=== PATIENT | male | born 1975 | race Caucasian/White ===

== ENCOUNTER 2017-08-26 10:24 | Day surgery (SDC) | payer BC ==
[~2017-08-26] VITALS: Ht 175.3 cm; Wt 81.6 kg
[~2017-08-26 10:24] MED LIST: AMLO1CAP PO; HYDR-3729 PO; PANT40TA3 PO; SUCR1TAB PO
--- OUTSIDE RECORDS SUMMARY | 2017-08-26 10:27 | XMS REPORT | Continuity of Care Document ---
Author Author [facility] Organization [facility] Address Unknown Phone Unavailable Allergies Active Description Code Type Severity Reaction Onset Reported/Identified Relationship to Patient Clinical Status Yes No Known Drug Allergies [id number] Drug Allergy Unknown N/ A 08/11/2014 Medications Problems Date Dx Coded Attending Type Code Diagnosis Diagnosed By 08/17/2014 MANUEL GATES MD Ot 575.11 CHRONIC CHOLECYSTITIS 08/19/2017 MANUEL GATES MD Ot 575.8 DIS OF GALLBLADDER NEC 08/19/2017 MANUEL GATES MD Ot 789.01 ABDOMINAL PAIN, RIGHT UPPER QUADRANT 08/19/2017 MANUEL GATES MD Ot 575.8 DIS OF GALLBLADDER NEC 08/19/2017 MANUEL GATES MD Ot V72.63 PRE-PROCEDURAL LABORATORY EXAMINATION 08/19/2017 MANUEL GATES MD Ot V72.81 WONT-[id number]-PCTDVJTFX CARDIOVASCULAR 08/19/2017 MANUEL GATES MD Ot V74.8 SCREEN-BACTERIAL DIS NEC Procedures Results Encounters ACCT No. Visit Date/Time Discharge Status Pt. Type Provider Facility Loc./Unit Complaint [id number] 08/19/2017 05:50:00 2016 15:44:00 DIS Outpatient MANUEL GATES MD [facility] PREOP EGD [id number] 08/17/2014 07:00:00 2013 12:15:00 DIS Outpatient MANUEL GATES MD [facility] SDC GALLBLADDER DYSKNESIA [id number] 08/16/2014 08:33:00 2013 23:59:59 CLS Outpatient MANUEL GATES MD [facility] PREOP GALLBLADDER DYSKNESIA [id number] 08/11/2014 14:04:00 2013 23:59:59 CLS Outpatient MANUEL GATES MD [facility] CARD RUQ PAIN [id number] 08/26/2017 11:30:00 ASHLEIGH GATES MD, MANUEL [facility] ENDO EPIGASTRIC PAIN
[2017-08-26] MEDS ORDERED: NS IV 500 ML 500 ML IV PRN (10:30)
[2017-08-26 10:51] VITALS: BP 139/97
--- NOTE | 2017-08-26 11:37 | Conscious Sedation/ASA ---
Conscious Sedation Pre-Proced Time Reviewed: 11:37 ASA Class: 2 Airway Mallampati Classification: ([place] appropriate class) I. II. III, IV Lungs Heart ASA score ASA 1: a normal healthy patient ASA 2: a patient with a mild systemic disease (mid diabetes, controlled hypertension, obesity ASA 3: a patient with a severe systemic disease that limits activity (angina , COPD, prior Myocardial infarction) ASA 4: a patient with an incapacitating disease that is a constant threat to life (CHF, renal failure) ASA 5: a moribund patient not expected to survive 24 hrs. (ruptured aneurysm) ASA 6: a declared brain patient whose organs are being harvested. For emergent operations, add the letter E after the classification Grade 1 Sedation Plan: Discussed options with patient/fam Note The patient is an appropriate candidate to undergo the planned procedure, sedation, and anesthesia. The patient immediately re-assessed prior to indication. MANUEL GATES MD Aug 26, 2017 11:37 am
--- NOTE | 2017-08-26 11:37 | History & Physicial ---
History of Present Illness History of Present Illness Reason for visit/HPI to undergo an upper endoscopy to evaluate epigastric pain Date of Admission Date Seen by Provider: Aug 26, 2017 Time Seen by Provider: 11:34 I consulted on this patient on 08/26/17 11:34 Attending Physician Manuel Gates MD Admitting Physician Mckay Gonzalez MD Consult Allergies and Home Medications Allergies Coded Allergies: No Known Drug Allergies (Unverified , 08/11/14) Home Medications Amlodipine Besylate/Benazepril 1 Each Capsule, 1 EACH PO DAILY, (Reported) Pantoprazole Sodium 40 Mg Tablet.dr, 40 MG PO DAILY, (Reported) Sucralfate 1 Gm Tablet, 1 GM PO ACHS, (Reported) Past [id number]-Pzkkmv-Rojvvw Hx Patient Social History Marrital Status: , Employed/Student: employed Alcohol Use: Regular Use Number of Drinks Today: 0 Alcohol Beverage of Choice: Beer Recreational Drug Use: Yes (1.5 PPD) Smoking Status: Current Everyday Smoker Type Used: Cigarettes Recent Foreign Travel: No Contact w/other who traveled: No Recent Hopitalizations: No Recent Infectious Disease Expo: No Seasonal Allergies Seasonal Allergies: No Surgeries Yes Gallbladder Respiratory No Cardiovascular Yes Hypertension Neurological No Reproductive System Hx Reproductive Disorders: No Genitourinary No Gastrointestinal No Musculoskeletal No Endocrine History of Endocrine Disorders: No HEENT History of HEENT Disorders: No Cancer No Psychosocial History of Psychiatric Problem: No Integumentary History of Skin or Integumenta: No Constitutional: no symptoms reported EENTM: no symptoms reported Respiratory: no symptoms reported Cardiovascular: no symptoms reported Gastrointestinal: see HPI Genitourinary: no symptoms reported Musculoskeletal: no symptoms reported Skin: no symptoms reported Psychiatric/Neurological: No Symptoms Reported Physical Exam Vital Signs Vital Sign - Last 12Hours 08/26/17 10:51 Temp 98.0 Pulse 77 Resp 16 B/P (MAP) 139/97 Pulse Ox 95 O2 Delivery Room Air Capillary Refill : General Appearance: No Apparent Distress HEENT: Normal ENT Inspection Neck: Normal Inspection Respiratory: Lungs Clear Cardiovascular: Regular Rate, Rhythm Gastrointestinal: Soft Rectal: Deferred Back: Normal Inspection Extremity: Normal Inspection Neurologic/Psychiatric: Oriented x3 Assessment/Plan Assessment and Plan gentleman with epigastric pain.previous cholecystectomy. For an upper endoscopy. Problems: MANUEL GATES MD Aug 26, 2017 11:37 am
[2017-08-26] MEDS ORDERED: fentaNYL INJECTION 100 MCG/2 ML AMP ONE (11:59)
[2017-08-26] MEDS ORDERED: HURRICAINE EXT TUBE (BENZOCAINE) ONE (11:59)
[2017-08-26] MEDS ORDERED: MIDAZOLAM 2 MG/2 ML (VERSED) VIAL ONE ×2 (11:59)
[2017-08-26] MEDS: fentaNYL INJECTION 100 MCG/2 ML AMP IVP PRN ×2 (12:05→12:10)
[2017-08-26] MEDS: MIDAZOLAM 2 MG/2 ML (VERSED) VIAL IVP PRN ×2 (12:08→12:12)
--- NOTE | 2017-08-26 12:19 | Endo Procedure Record ---
Endo Procedure Report Date of Procedure Aug 26, 2017 Surgeon (s) MANUEL GATES MD Post Procedure/Op Diagnosis distal gastritis Procedure Performed EGD with antral biopsy Description of Procedure Anesthesia Type: Conscious Sedation Specimen(s) collected/removed antral mucosa for H. pylori Description of the Procedure Indication for the procedure: This gentleman came in for an upper endoscopy, to evaluate epigastric pain. Informed consent was obtained after reviewing the procedure in detail. Description of procedure: He was placed in left lateral decubitus position and his vital signs were monitored. Conscious sedation was achieved using Versed and fentanyl. The flexible gastroscope was introduced down the esophagus, past the stomach, into the proximal duodenum. Findings: Esophagus: An uncomplicated hiatal hernia. Stomach: Distal gastritis of moderate severity. Biopsy for H. pylori was obtained Duodenum: Normal He tolerated the procedure well and was taken back to the nursing area in a stable condition. Impression: Epigastric pain. Distal gastritis. Helicobacter status pending. MANUEL GATES MD Aug 26, 2017 12:19 pm
--- NOTE | 2017-08-26 12:21 | Discharge Inst-Simple/Standard ---
Discharge Inst-Standard Discharge Medications New, Converted or Re-Newed RX: Other Patient Instructions/Follow Up Plan of Care/Instructions/FU: to increase pantoprazole to BID. Carafate to 3 times a day.follow-up with me in a month Activity as Tolerated: Yes Discharge Diet: No Restrictions MANUEL GATES MD Aug 26, 2017 12:21 pm
[2017-08-26] MEDS ORDERED: HURRICAINE EXT TUBE (BENZOCAINE) XX ONE (12:30)
[2017-08-26 12:50] VITALS: BP 137/93
[2017-08-26 13:20] VITALS: BP 120/96
== END 2017-08-26 13:23 | disposition home or self-care (01) ==
LOC: ENDO 10:24
PROVIDERS: ATTEND Surgery
DX: K29.60 Other gastritis without bleeding (principal); I10 Essential (primary) hypertension; F17.210 Nicotine dependence, cigarettes, uncomplicated

== ENCOUNTER → 2021-03-01 | Outpatient (CLI) | payer OTHER ==
[~2021-03-01] MED LIST changes: -PANT40TA3 PO; +PANT40TA52 PO
--- NOTE | 2021-03-01 14:13 | Diagnostic Imaging Report ---
INDICATION: Low back pain Lumbar spine AP and lateral views of the lumbar spine shows normal vertebral body height and alignment. There is mild spondylosis with some osteophytes forming anteriorly. IMPRESSION: Mild spondylosis deformans. No acute abnormality seen. Dictated by: Dictated on workstation # [id number]
== END ==
LOC: RAD 13:25
PROVIDERS: ATTEND Family Medicine
DX: Z02.71 Encounter for disability determination (principal); M47.816 Spondylosis without myelopathy or radiculopathy, lumbar region
CPT/HCPCS: 72100

== ENCOUNTER → 2022-06-26 | Outpatient (CLI) | payer BC ==
--- NOTE | 2022-06-26 11:52 | Diagnostic Imaging Report ---
GASTRIC EMPTYING TIME SCAN Technique: Anterior and posterior planar scintigraphic images of the stomach were obtained after the patient ingested 1.1 mCi of technetium 99m sulfur collate mixed with eggs. Indication: Nausea and vomiting, unspecified Comparison: None available. Findings: A time activity curve was calculated for the stomach with the following values of retained activity in the stomach post ingestion: 1 hour: 50% (delayed if greater than 90% retained) 2 hour: 40% (delayed if greater than 60% retained) 3 hour: 18% (delayed if greater than 30% retained) 4 hour: 1% (delayed if greater than 10%) The half-time (T1/2) for gastric emptying was 114 minutes, which is normal. Impression:Normal gastric emptying. Dictated by: Dictated on workstation # [id number]
== END ==
LOC: CARD 07:00
PROVIDERS: ATTEND Internal Medicine
DX: R11.2 Nausea with vomiting, unspecified (principal)
CPT/HCPCS: 78264; A9541

== ENCOUNTER → 2023-09-10 | Outpatient (CLI) | payer BC ==
[~2023-09-10] MED LIST changes: +REGADENOSON 0.4 MG/5 ML SYR IV ONE
[2023-09-10] MEDS: CATHETER FLUSH 10 ML SYR IVP PRN ×2 (12:34→13:14)
[2023-09-10 13:13] VITALS: BP 135/88
--- NOTE | 2023-09-10 16:27 | STRESS TEST ---
DATE OF SERVICE: 09/10/2023 RESTING AND POST REGADENOSON TECHNETIUM-99M TETROFOSMIN SPECT CT IMAGING ORDERING PHYSICIAN: Dr. Fraga. PRIMARY PHYSICIAN: Dr. Watkins. CLINICAL DIAGNOSIS: Syncope. Baseline images were carried out after injection of 10.43 mCi of technetium-99m tetrofosmin. This was followed by 0.4 mg regadenoson and 30.77 mCi of technetium-99m tetrofosmin for stress imaging. The electrocardiogram showed sinus bradycardia at baseline. The electrocardiogram did not change significantly with regadenoson infusion. The patient tolerated the procedure well. Review of images at rest and following stress does not indicate any significant perfusion defects consistent with myocardial ischemia or infarction. Gated images show normal global left systolic function with normal regional wall motion. Left ventricular ejection fraction is calculated to be 51%. CONCLUSIONS: 1. No evidence of significant myocardial ischemia or infarction on this study. 2. Normal regional wall motion. 3. Normal global left ventricular systolic function with a calculated ejection fraction 51%. Job ID: [id number] DocumentID: [id number] Dictated Date: 09/10/2023 15:11:28 Forensic Audit Expert Date: 09/10/2023 16:26:00 Dictated By: NORMA FRAGA MD; OPAL; FACP; FACC;
== END ==
LOC: CARD 12:30
PROVIDERS: ATTEND Internal Medicine Cardiovascular Disease
DX: R55 Syncope and collapse (principal)
CPT/HCPCS: 78452; 93017; A9502